=== PATIENT | female | born 1975 | race American Indian/Alaskan Native ===

== ENCOUNTER 2019-09-21 09:42 | Emergency (ER) | payer BC ==
[2019-09-21 10:06] VITALS: BP 141/71
[2019-09-21] MEDS ORDERED: ASPIRIN 325 MG TAB PO ONE (10:06)
[2019-09-21] MEDS ORDERED: ASPIRIN 325 MG TAB ONE (10:09)
[2019-09-21 10:23] LABS: Basophils # (Auto) 0.1 K/mm3 (0.0-0.1); Basophils % (Auto) 1.5 % (0.0-1.8); Eosinophils # (Auto) 0.2 K/mm3 (0.0-0.4); Eosinophils % (Auto) 2.9 % (0.0-4.3); Hematocrit 36.7 % (30.3-42.9); Hemoglobin 11.8 gm/dl (10.1-14.3); Lymphocytes # (Auto) 2.5 K/mm3 (1.2-5.4); Lymphocytes % (Auto) 41.9 % (13.4-35.0); Mean Corpuscular HGB Conc 32 % (30-34); Monocytes # (Auto) 0.3 K/mm3 (0.0-0.8); Monocytes % (Auto) 5.4 % (0.0-7.3); Platelet Count 380 K/mm3 (140-440); Red Cell Distribution Width 18.6 % (13.2-15.2)
[2019-09-21 10:32] LABS: Mean Corpuscular Volume 63 fl (79-97)
[2019-09-21 10:53] LABS: BUN/Creatinine Ratio 14; Blood Urea Nitrogen 13 mg/dL (7-17); Calcium 9.6 mg/dL (8.4-10.2); Hemolysis Index 0
--- NOTE | 2019-09-21 11:05 | XRay Report ---
CHEST 1 VIEW INDICATION: Chest Pain. COMPARISON: None FINDINGS: Support devices: None. Heart: Within normal limits. Lungs/Pleura: No acute air space or interstitial disease. Additional findings: None. IMPRESSION: No acute findings. Signer Name: Constantine Carter Jr, MD Signed: 09/21/2019 11:01 AM Workstation Name: [id number]
--- NOTE | 2019-09-21 11:20 | Emergency Department Report ---
Minor Respiratory - HPI Chief Complaint: Chest Pain Stated Complaint: CHEST PRESSURE Time Seen by Provider: 09/21/19 11:04 Duration: 2 Days Pain Location: Chest Severity: mild Minor Respiratory: Yes Able to Tolerate Fluids, No Rhinorrhea, No Sore Throat, No Ear Pain, No Cough, No Sick Contacts, No Hemoptysis, No Chest Pain, No Shortness of Breath, No Fever Other History: 44 yo AA female comes to ER with intermittent chest pressure for 2 days. She is concerned due to her hx SVT. HR normal on exam. She denies palpitations. She is on no meds. States she was treated for the SVT in [facility] years ago and never follow up. The pain is intermittent and related to her anxiety- it scared her so she came to ER to be checked. No fever chills. No sob. No hx UT. No family hx of ACS. ED Review of Systems ROS: Stated complaint: CHEST PRESSURE Other details as noted in HPI Comment: All other systems reviewed and negative ED Past Medical Hx - Past Medical History Previous Medical History?: Yes Hx Asthma: Yes Additional medical history: svt - Surgical History Past Surgical History?: Yes Additional Surgical History: Umbilical hernia, tubal ligation - Family History Family history: no significant - Social History Smoking Status: Never Smoker Substance Use Type: None Minor Respiratory Exam - Exam General: Vital signs noted. No distress. Alert and acting appropriately. HEENT: Yes Moist Mucous Membranes, No Pharyngeal Erythema, No Pharyngeal Exudates, No Rhinorrhea, No Conjuctival Injection, No Frontal Tenderness, No Maxillary Tenderness Ear: Neither TM Bulge, Neither TM Erythema, Neither EAC Pain, Neither EAC Discharge Neck: Yes Supple, No Adenopathy Lungs: Yes Good Air Exchange, No Wheezes, No Ronchi, No Stridor, No Cough, No Labored Respirations, No Retractions, No Use of Accessory Muscles, No Other Abnormal Lung Sounds Heart: Yes Regular, No Murmur Abdomen: Yes Normal Bowel Sounds, No Tenderness, No Peritoneal Signs Skin: No Rash, No Edema Neurologic: Alert and oriented, no deficits. Musculoskeletal: Unremarkable. ED Course Vital Signs 09/21/19 10:04 Temperature 98.6 F Pulse Rate 56 L Respiratory 18 Rate Blood Pressure 141/71 [Right] O2 Sat by Pulse 100 Oximetry ED Medical Decision Making - Lab Data Result diagrams: 09/21/19 10:11 09/21/19 10:11 - EKG Data EKG shows normal: sinus rhythm - EKG Data When compared to previous EKG there are: no significant change Interpretation: no acute changes - Radiology Data Radiology results: report reviewed, image reviewed - Medical Decision Making Labs 09/21/19 09/21/19 09/21/19 10:11 10:11 10:11 WBC 6.0 RBC 5.80 H Hgb 11.8 Hct 36.7 MCV 63 L MCH 20 L MCHC 32 RDW 18.6 H Plt Count 380 Lymph % (Auto) 41.9 H [place] % (Auto) 5.4 Eos % (Auto) 2.9 Baso % (Auto) 1.5 Lymph # 2.5 [place] # 0.3 Eos # 0.2 Baso # 0.1 Seg Neutrophils % 48.3 Seg Neutrophils # 2.9 Sodium 142 Potassium 3.9 Chloride 104.5 Carbon Dioxide 25 Anion Gap 16 BUN 13 Creatinine 0.9 Estimated GFR > 60 BUN/Creatinine Ratio 14 Glucose 96 Calcium 9.6 Troponin T < 0.010 HCG, Qual Negative labs noted VSS Vital Signs 09/21/19 10:04 Temperature 98.6 F Pulse Rate 56 L Respiratory 18 Rate Blood Pressure 141/71 [Right] O2 Sat by Pulse 100 Oximetry pt reports inc stress which seems to be proximal to her symptoms. Sheyla discussed pt following up with cards given her history. She verbalizes understanding. 12 lead with NAP. No cp on exam. We have discussed role of her anxiety. dc home with pcp and cards follow up. - Differential Diagnosis anxiety/acs Critical care attestation.: If time is entered above; I have spent that time in minutes in the direct care of this critically ill patient, excluding procedure time. ED Disposition Clinical Impression: Chest wall pain, Hx of supraventricular tachycardia Disposition: DC-01 TO HOME OR SELFCARE Is pt being admited?: No Does the pt Need Aspirin: No Condition: Stable Instructions: Chest Pain (ED) Additional Instructions: FOLLOW UP WITH PCP AND CARDIOLOGY FOR FULL WORK UP REFERRALS BELOW WORK ON STRESS LEVEL ALL LABS NORMAL TODAY Referrals: ARNOLDO ANAYA MD [Staff Physician] - 3-5 Days DANIAL AYALA MD [Staff Physician] - 3-5 Days Forms: Work/School Release Form(ED) Time of Disposition: 11:18
== END 2019-09-21 12:09 | disposition home or self-care (01) ==
LOC: ED 09:42
DX: R07.89 Other chest pain (principal); I47.1 Supraventricular tachycardia; J45.909 Unspecified asthma, uncomplicated; Z98.51 Tubal ligation status; Z98.890 Other specified postprocedural states
CPT/HCPCS: 36415; 71045; 80048; 84484; 84703; 85025; 93005; 93010

== ENCOUNTER 2021-01-11 14:39 | Emergency (ER) | payer SELFPAY ==
[2021-01-11 14:56] VITALS: BP 139/53
[2021-01-11] MEDS ORDERED: ASPIRIN 325 MG TAB PO ONE (14:57)
--- NOTE | 2021-01-16 17:22 | Electrocardiograph Report ---
[facility] Test Date: 2021-01-11 Test Time: 14:44:17 Pat Name: POLLO SILVERIO Department: Room: Gender: F Human Services Assistant: RONAN : 1975 Requested By: NATALIE FIGUEROA Order Number: [id number] Reading MD: Marcia Moreno Measurements Intervals [place] Rate: 62 P: 58 IA: 167 QRS: 45 QRSD: 104 T: 34 QT: 422 QTc: 427 Interpretive Statements Sinus rhythm No previous ECG available for comparison Electronically Signed On 01-16-2021 17:21:56 EDT by Marcia Moreno
== END 2021-01-11 15:00 | disposition left against medical advice (07) ==
LOC: ED 14:39
DX: R07.89 Other chest pain (principal); Z53.21 Procedure and treatment not carried out due to patient leaving prior to being seen by health care provider
CPT/HCPCS: 93005